=== PATIENT | female | born 2005 | race Caucasian/White ===

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

== ENCOUNTER 2024-04-21 11:25 | Outpatient (CLI) | payer OTHER, SELFPAY ==
--- NOTE | ~2024-04-21 | US_ITS ---
EXAMINATION: US abdomen limited DATE: 04/21/2024 11:49 INDICATION: Right upper quadrant abdominal pain and weight loss TECHNIQUE: Multiple grayscale and Doppler ultrasound images of the abdomen were obtained. COMPARISON: CT dated 04/08/2022 and 10/14/2021 FINDINGS: Pancreas is normal. Visualized proximal inferior vena cava is normal. Liver has normal echogenicity a nd contour, with a smooth surface. 1.8 x 1.8 x 0.9 cm region of increased echogenicity corresponding to low-attenuation focal hepatic steatosis along the ligamentum tares on the prior CT. No other liver lesion identified. No intrahepatic biliary duct dilation suspected. Portal venous flow was seen in t he hepatopetal, normal direction and has normal Doppler waveform. The gallbladder is normal in appear ance. There is no cholelithiasis. The common bile duct measures 2-3 mm, which is normal. Sonographic Guallpa sign was reported as negative by the fiscal services director. IMPRESSION: 1. Unchanged small of echogenic focal hepatic steatosis at the ligamentum teres. Otherwise normal rig ht upper quadrant ultrasound. Reviewed, dictated and finalized at location A. IMPRESSION: 1. Unchanged small of echogenic focal hepatic steatosis at the ligamentum teres . Otherwise normal right upper quadrant ultrasound.
== END 2024-04-21 11:26 ==
LOC: MICIMG 11:26
PROVIDERS: PCP Physician Assistant; Visit Provider Physician Assistant
DX: R10.11 Right upper quadrant pain (principal)
CPT/HCPCS: 76705

== ENCOUNTER 2024-04-26 08:03 | Outpatient (CLI) | payer OTHER, SELFPAY ==
--- NOTE | ~2024-04-26 | NM_ITS ---
EXAMINATION: NM hepatobiliary w pharm DATE: 04/26/2024 12:25 CDT INDICATION: Right upper quadrant pain COMPARISON: Ultrasound dated 04/21/2024 TECHNIQUE: 4.6 mCi Tc-99m mebrofenin (Choletec) was administered intravenously. Scintigraphic images of the abdomen were obtained for one hour. At the 1 hour time point, [1.1 mcg sincalide (Kinevac) wa s administered by slow intravenous infusion, and imaging was continued for 30 minutes. Gallbladder ej ection fraction was calculated by the technologist.] FINDINGS: There is normal clearance of radiotracer from the blood pool. There is homogeneous tracer u ptake by the liver. Activity progresses to the gallbladder and bowel. Gallbladder ejection fraction is 62% (normal 10-90%, but most patient with gallbladder dysfunction have GBEF < 35%).] IMPRESSION: 1. Normal hepatobiliary scan. Reviewed, dictated and finalized at location B.
== END 2024-04-26 08:04 | disposition home or self-care (01) ==
LOC: ANHIMG 08:06
PROVIDERS: PCP Physician Assistant; Visit Provider Physician Assistant
DX: R10.11 Right upper quadrant pain (principal)
CPT/HCPCS: 78227; A9537; J2805

== ENCOUNTER 2024-10-15 11:01 | Outpatient (CLI) | payer OTHER, SELFPAY ==
--- NOTE | ~2024-10-15 | US_ITS ---
EXAMINATION: US thyroid DATE: 10/15/2024 11:16 INDICATION: Euthyroid with thyroid antibodies TECHNIQUE: Multiple ultrasound images of the thyroid were obtained. COMPARISON: None. FINDINGS: The right thyroid lobe measures 4.5 x 1.1 x 1.8 cm. The left thyroid lobe measures 4.3 x 1.0 x 1.6 cm. The isthmus measures 0.2cm in anterior to posterior dimension. There is normal echotexture and echogenicity throughout the thyroid gland. No discrete nodules identified. Normal vascular flow is present. IMPRESSION: Unremarkable sonographic evaluation of the thyroid gland, as detailed above. Reviewed, dictated and finalized at location A. SAW OPERATOR
== END 2024-10-15 11:02 | disposition home or self-care (01) ==
LOC: MICIMG 11:01
PROVIDERS: PCP Physician Assistant; Visit Provider Physician Assistant
DX: E07.81 Sick-euthyroid syndrome (principal)
CPT/HCPCS: 76536